=== PATIENT | female | born 1980 | race Caucasian/White ===

== ENCOUNTER 2025-05-03 08:40 | Day surgery (SDC) | payer MEDICAID, SELFPAY ==
[2025-05-02 08:05] VITALS: BMI 27.8
[2025-05-02 09:52] LABS: Basophils # (Auto) 0.0 Thou/mm3 (0.0-0.2); Basophils % (Auto) 1 % (0-2.5); Eosinophils # (Auto) 0.1 Thou/mm3 (0.0-0.5); Eosinophils % (Auto) 2 % (0-10); Hematocrit 39.9 % (36.0-46.0); Hemoglobin 13.5 g/dL (12.0-16.0); Immature Granulocytes Auto 0.04 Thou/mm3 (0.00-0.00); Lymphocytes # (Auto) 0.7 Thou/mm3 (1.0-4.8); Lymphocytes % (Auto) 10 % (10-50); Mean Corpuscular HGB Conc 33.8 g/dl (31.0-37.0); Mean Corpuscular Hemoglobin 29.3 pg (25.0-35.0); Mean Corpuscular Volume 87 fL (80-100); Monocytes # (Auto) 0.4 Thou/mm3 (0.0-0.8); Monocytes % (Auto) 6 % (0-12); Neutrophils # (Auto) 5.2 Thou/mm3 (1.8-7.7); Neutrophils % (Auto) 80 % (37-80); Nucleated Red Blood Cell # 0.00 Thou/mm3 (0.00-0.00); Nucleated Red Blood Cell % 0 /100 WBC (0); Platelet Count 228 Thou/mm3 (140-440); RDW Standard Deviation 55.7 fL (36.4-46.3); Red Blood Count 4.61 Miln/mm3 (4.00-5.20); White Blood Count 6.5 Thou/mm3 (3.6-11.0)
[2025-05-02 09:58] LABS: HCG,Qualitative Serum Negative
[2025-05-02 10:03] LABS: Alanine Aminotransferase 48 U/L (10-49); Albumin, Serum 4.3 gm/dL (3.5-5.0); Albumin/Globulin Ratio 1.9 (1.2-2.2); Alkaline Phosphatase 93 U/L (46-116); Anion Gap 9 (7-16); Aspartate Amino Transferase 29 U/L (0-34); BUN/Creatinine Ratio 22 Ratio (12-20); Bilirubin,Total 0.3 mg/dL (0.3-1.2); Blood Urea Nitrogen 11 mg/dL (9-23); Calcium 9.2 mg/dL (8.3-10.6); Calcium (Corrected) 9.2 mg/dL (8.5-10.1); Carbon Dioxide 28.1 mMol/L (20.0-31.0); Chloride 108 mMol/L (98-107); Creatinine (Component) 0.5 mg/dL (0.6-1.3); Estimated Creatinine Clearance 151.8 mL/min (>60); Globulin 2.3 gm/dL (2.3-3.5); Glucose 98 mg/dL (74-106); Osmolality,Calculated 288 (275-295); Potassium 3.8 mMol/L (3.4-5.1); Sodium 145 mMol/L (136-145); Total Protein 6.6 gm/dL (5.7-8.2); eGFR > 60 See Note
[2025-05-02 10:43] LABS: Hepatitis A Antibody IgM Non Reactive (Non React); Hepatitis B Core Antibody IgM Non Reactive (Non React); Hepatitis B Surface Antigen Non Reactive (Non React); Hepatitis C Antibody Non Reactive (Non React)
[2025-05-02 11:30] LABS: HIV (1&2) Antibody Rapid Non-Reactive
--- NOTE | 2025-05-02 16:05 | PD.GYNHP ---
Documentation for date of: 05/02/25 GENERAL MERCHANDISE SALESPERSON - HPI History of Present Illness History of present illness: Ms. LEACH is a 44 year old female p4 admitted for Total laparoscopy hysterectomy bilateral salpingectomy for AUB, unresponsive to medical treatment .Pt has been awaiting the surgery for a year now as her previous physician cancelled the surgery . Susan was given all options of hormonal managemnt and was started on OCP , depo and tranexamic acid. Pt says she still saturates 8 pads /d and periods are very heavy having multiple accidents . Denied to get ablation Meds Home Medications and Allergies Home Medications ?Medication ?Instructions ?Recorded ?Confirmed ?Type No Known Home Medications 05/02/25 05/02/25 History Allergies Allergy/AdvReac Type Severity Reaction Status Date / Time No Known Allergies Allergy Verified 05/02/25 08:24 Exam - GENERAL MERCHANDISE SALESPERSON Constitutional Constitutional: no acute distress Routine HEENT Exam Head: Present normocephalic and atraumatic Eye: Present EOMI and PERRL ENT: Present mucous membranes moist Routine Neck Exam Neck: Present supple and trachea midline Routine Respiratory Exam Respiratory: Present chest non-tender, lungs clear, normal breath sounds and no resp distress Routine Cardiovascular Exam Cardiovascular: Present RRR Routine Abdominal Exam Abdominal: Present soft and normoactive bowel sounds Routine Extremities Exam Extremities: Present full ROM Routine Skin Exam Skin: Present intact and dry Routine Neurological Exam Neurological: Present alert, oriented X3 and CN II-XII intact Routine Psychiatric Exam Psychiatric: Present normal affect and normal thought process GENERAL MERCHANDISE SALESPERSON - Results Labs 05/02/25 08:43 05/02/25 08:43 Labs: Short CBC 05/02/25 Range/Units 08:43 WBC 6.5 (3.6-11.0) Thou/mm3 Hgb 13.5 (12.0-16.0) g/dL Hct 39.9 (36.0-46.0) % Plt Count 228 (140-440) Thou/mm3 BMP 05/02/25 08:43 Sodium 145 Potassium 3.8 Chloride 108 H Carbon Dioxide 28.1 BUN 11 Creatinine 0.5 L Glucose 98 Calcium 9.2 Liver Function 05/02/25 Range/Units 08:43 Total Bilirubin 0.3 (0.3-1.2) mg/dL AST 29 (0-34) U/L ALT 48 (10-49) U/L Alkaline Phosphatase 93 (46-116) U/L Albumin 4.3 (3.5-5.0) gm/dL Impressions Impression: 44 y/o VDX4 admitted for TLH+Possible BS H/O salpingetomy and a diagnostic laparoscopy Failed medical managemnet, adamant about catrachita hysterectomy after beingcounselled about risk of surgery and non invasiveness of medical managemnt , she DOESNOT want to try any other medical managemnt EMB no hyperplasia cancer US he study demonstrates normal echogenicity retroflexed uterus measuring 6.5 x5.8 cm. Endometrial thickness 13 mm. The cervix is normal. No free fluid [id number]-ot-rva. The adnexa is normal. NILM +HPV negative 2022?? Assessment and Plan Additional Assessment & Plan Additional Plan: total alaproscopic hysterectomy possile salpingectomy possible laparotomy possible diagnostic cystoscopy Quality Measures Quality Measures VTE prophylaxis
[2025-05-03] VITALS (7 sets, daily range): BP systolic 115–156; BP diastolic 69–94; PULSE 83–96; RESP 13–20; TEMP 36.1–37.4; O2SAT 96–100; BMI 27.8
--- NOTE | 2025-05-03 11:35 | ESOP_ITS ---
Operative Note - CUSTOMER DEVELOPMENT REPRESENTATIVE Procedure Date of procedure: 05/03/25 Procedure Performed: Laparoscopic hysterectomy aborted Diagnostic laparoscopy Indication: Abnormal uterine bleeding Pre-Op diagnosis: Same Post-Op diagnosis: Stage IV endometriosis Obliteration of the posterior cul-de-sac Anesthesia type: General Procedure description: Patient was taken to the operating room. General anesthesia was given without any complications.? A time out was given confirming Enedelia Costa was undergoing the following, procedure,allergies, and surgeon.The patient was positioned in the dorsal lithotomy position. The perineum was prepped with Betadine solution per routine.The abdomen was prepped with DuraPrep. Castro catheter placed to drain the bladder.Then attention was then focused to the vagina. Cervix was drawn upwards and with great difficulty anterior lip was visualized using 2 bronson speculum. A tenaculum was used to grasp anterior lip of cervix. Medium sized Vcare inserted and placed in position. the surgeon then changed gloves to continue proper sterile technique. Attention was diverted to the abdomen. An umblical incision was first made, Two towel clips were placed lateral to the umbilicus in order to elevate the abdominal wall.? A hemostat was used to assess the depth to the fascia. While applying countertraction by lifting the towel clips, a Veress needle was used to enter the peritoneal cavity, a initial abdominal pressure of 2 mmHg was noted upon entry. Veress needle used for initial pneumoperitoneum establishment. 5 mm port used for the direct trocar entry the abdomen was then insufflated with CO2 gas to 15mmHg, under the opti- view system was advanced into the peritoneal entry.? The Right lower quadrant was evaluated and a 5-mm incision was made . 5-mm trocar placed under camera surveillance. Left lower quadrant was evaluated and 5 mm trocar was placed. On evaluation, Uterus is enlarged up to 12 weeks size globular and consistent with adenomyosis. Left adnexa was not visible because of a bowel and omental adhesion. Using a uterine manipulator mild amount of traction was used to see the depth of the lesion and was confirmed to extend all the way from the sidewall of the uterus to the posterior cul-de-sac. Posterior cul-de-sac was obliterated by colonic adhesion on the left side and adnexal adhesion on the right. Right ovary was scantly seen buried in deeply in the right posterior cul-de-sac pictures were taken signs of endometriotic implants where seen on the uterus and lateral pelvic wall abundantly. Decision was taken not to go ahead with the surgery given her high chances of having bowel injury and difficulty in reaching the posterior cul-de-sac for a successful colpotomy. Vaginal manipulator taken out tenaculum site bleeding was controlled using Monsel's. Castro catheter was removed. After emptying the pneumoperitoneum all the abdominal incisions were closed using 3-0 Monocryl. Hemostasis maintained all the images taken were printed and the case discussed in detail with patient's Rock Costa Estimated blood loss (ml): 5 Surgical staff Operation Date: 05/03/25 10:30 Case Staff ASSEMBLY TECHNICIAN: Vinh Nunes RN First Assistant: Jimmie Sheffield Diagnosis Problem List Completed Was Problem List Reviewed/Reconciled?: Yes
--- NOTE | 2025-05-03 11:35 | SUR.PHASEI ---
1135: Pt. wakes to name then drifts back to sleep, vitals stable, breathing unlabored, no complaint of pain or nausea, x3 dermabond sites to ABD CDI, no active bleed noted, report received from Glynn AVILA and Laney MALIK.
--- NOTE | 2025-05-03 12:10 | SUR.PHASEII ---
Received report on pt. s/p surgery from Katiana MALIK. Pt. is AAOx3, VSS, no c/o pain or nausea at this time.
--- NOTE | 2025-05-03 12:40 | SUR.PHASEII ---
Pt. meets criteria for discharge, VSS, no c/o pain or nausea at this time, provided discharge instructions to pt. and pt.'s , verbalized understanding. IV discontinued without complications, pt. escorted to vehicle via w/c by staff with all of belongings.
== END 2025-05-03 12:40 | disposition home or self-care (01) ==
PROVIDERS: PCP Family Medicine; Referring Provider Student in an Organized Health Care Education/Training Program; Visit Provider Student in an Organized Health Care Education/Training Program
PROC: 0UT94ZZ Resection of Uterus, Percutaneous Endoscopic Approach (ICD-10-PCS; CPT 58662; principal; 2025-05-03 10:15)
DX: N80.392 Deep endometriosis of the pelvic peritoneum, other specified sites (principal); Z90.710 Acquired absence of both cervix and uterus
CPT/HCPCS: 58662; 36415; 80053; 80074; 84703; 85025; 86703; 86850; 86900; 86901; A4217; A4649; J0131; J0690; J1171; J1885; J2250; J2704; J3010; J3490; A9270